=== PATIENT | female | born 1945 | race Caucasian/White ===

== ENCOUNTER → 2019-05-10 13:50 | Outpatient (CLI) | payer MEDICARE, OTHER, SELFPAY | PROVIDERS: PCP Family Medicine; Visit Provider Family Medicine | DX: Z78.0 Asymptomatic menopausal state (principal) | CPT/HCPCS: 77080 ==

== ENCOUNTER → 2019-11-15 10:58 | Outpatient (CLI) | payer MEDICARE, OTHER, SELFPAY ==
--- NOTE | 2019-11-15 | DI.CT.S_ITS ---
PROCEDURE: CT ABDOMEN PELVIS W CON INDICATIONS: Other specified disorders of kidney and ureter TECHNIQUE: After the administration of oral and intravenous contrast, 5 mm thick sections acquired from the diaphragms to the symphysis. 5 mm thick coronal and sagittal reformats were performed. For radiation dose reduction, the following was used: automated exposure control, adjustment of mA and/or kV according to patient size. COMPARISON: None. FINDINGS: Image quality: Excellent. ABDOMEN: Lung bases: Lung bases are clear. Heart size is normal. Solid organs: Hepatic steatosis. Gallbladder negative. Biliary system is non-dilated. Pancreas enhances normally. Spleen is normal in size and enhancement. No adrenal nodules. Kidneys are normal in size and enhancement, without hydronephrosis. There is malrotated appearance of the right kidney. Large simple appearing right renal cyst measuring 7.2 x 5.9 cm. Additional simple appearing smaller left renal cyst measuring 4.5 cm in diameter. Peritoneum and bowel: Stomach, small bowel, and colon loops are normal in caliber and wall thickness. No free fluid or air. Normal appendix. Surgical staple line present at the rectosigmoid junction. Nodes and vessels: No retroperitoneal or mesenteric adenopathy. Aorta and inferior vena cava are normal in caliber. Miscellaneous: No ventral hernias. PELVIS: Genitourinary: Bladder wall thickness is normal. Miscellaneous: No inguinal hernias or adenopathy. Bones: No suspicious bony lesions. No vertebral body compression fractures. IMPRESSION: No discrete mass identified. 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 Elsewhere, no acute process Hepatic steatosis Dictated by: Eleazar Osuna M.D. on 11/15/2019 at 16:33 Approved by: Eleazar Osuna M.D. on 11/15/2019 at 16:43
== END ==
PROVIDERS: PCP Family Medicine; Visit Provider Family Medicine
DX: N28.89 Other specified disorders of kidney and ureter (principal); K76.0 Fatty (change of) liver, not elsewhere classified; N28.1 Cyst of kidney, acquired; Q63.2 Ectopic kidney
CPT/HCPCS: 74177; Q9967

== ENCOUNTER → 2020-08-06 08:55 | Outpatient (CLI) | payer MEDICARE, OTHER, SELFPAY ==
--- NOTE | 2020-08-06 09:25 | DI.CT.S_ITS ---
PROCEDURE: CT CHEST WO CON INDICATIONS: Solitary pulmonary nodule, history of breast cancer TECHNIQUE: Noncontrast 5 mm thick sections acquired from the pulmonary apices to the posterior costophrenic angles. 1 mm lung window, 5 mm thick coronal and sagittal and 7 mm axial MIP reformats were then acquired. For radiation dose reduction, the following was used: automated exposure control, adjustment of mA and/or kV according to patient size. COMPARISON: None. FINDINGS: Image quality: Excellent. Lungs and pleura: There are numerous nodules in a peripheral distribution as part of a subtle reticulonodular pattern peripherally in both lungs. Nodules are roughly 2 mm, ground-glass composition, and somewhat patchy. There are occasional, more discrete ground-glass nodules, the largest which is fat posterolaterally right lower lobe (3/231), measures 5 mm. At the lung apices, there is mild biapical pleural based nodularity, and subtle centrilobular emphysematous change. No consolidations or pleural effusions. Central and peripheral airways are patent and normal in caliber. Mediastinum: Heart size is normal. No pericardial effusion. No mediastinal adenopathy by size criteria. Thoracic aorta and central pulmonary arteries are normal in size. Esophagus is normal in caliber. No hiatal hernia. Bones and chest wall: There are surgical clips in left axilla and left breast. An ovoid left axillary seroma measures 6.6 x 4.1 x 4.9 cm. Left breast lumpectomy cavity measures about 3.2 x 3.2 x 1.1 cm. There are degenerative anterior endplate sclerotic changes in the mid thoracic spine. No suspicious bony lesions. No vertebral body compression fractures. No axillary or supraclavicular adenopathy by size criteria. Thyroid gland is unremarkable . Abdomen: Visualized upper abdominal solid organs and bowel loops appear normal in the absence of contrast. Partially imaged left upper pole renal cyst. IMPRESSION: 1. Numerous, mainly pleural-based tiny nodules are part of a peripheral reticulonodular lung pattern. This may be post infectious, inflammatory, less likely aspiration given atypical distribution, or potentially smoking-related (if this fits the clinical picture). Interstitial lung disease or metastatic disease cannot be excluded. 3-6 month follow-up chest CT is recommended to assess for change. 2. Postsurgical changes in the left breast and left axilla. 3. No evidence of adenopathy in the chest. Dictated by: Jessica Rubio M.D. on 08/06/2020 at 10:52 Approved by: Jessica Rubio M.D. on 08/06/2020 at 11:10
== END ==
PROVIDERS: PCP Family Medicine; Referring Provider Family Medicine; Visit Provider Family Medicine
DX: C50.412 Malignant neoplasm of upper-outer quadrant of left female breast (principal); R91.1 Solitary pulmonary nodule
CPT/HCPCS: 71250

== ENCOUNTER 2020-08-06 09:18 | Emergency (ER) | payer MEDICARE, OTHER, SELFPAY ==
[2020-08-06] VITALS (8 sets, daily range): BP systolic 113–137; BP diastolic 66–85; PULSE 72–88; RESP 16–18; TEMP 36.8; O2SAT 96–99
--- NOTE | 2020-08-06 09:52 | ED_ITS ---
HPI - Extremity Problem General Chief complaint: Extremity Problem,Nontraumatic Stated complaint: underarm pain post op Time Seen by Provider: 08/06/20 09:34 Source: patient Mode of arrival: Ambulatory Limitations: no limitations History of Present Illness HPI Narrative: Patient is a 75-year-old female. History of breast cancer. Underwent a lymph node biopsy left axillary area approximately 1 month ago. Has subsequently had radiation. Had a outpatient CT scan of the chest ordered by her primary doctor for evaluation of other ?inflammation? areas that were found throughout her workup. Here in the emergency department because for the past 2 days has had increasing pain and swelling to the left breast/axillary region. Has had similar issues like this in the past. Has had a seroma drained 3 different times by her surgeon over the past month. Has been on Tylenol and ibuprofen for the discomfort. Also have some ?nerve pain? no fevers. Related Data Home Medications Medication Instructions Recorded Confirmed [ESTROGEN PATCH] #0 04/02/17 escitalopram oxalate [Lexapro] #0 04/02/17 triamterene-hydrochlorothiazid #0 04/02/17 Previous Rx's Medication Instructions Recorded ciprofloxacin HCl [Cipro] 500 mg PO BID #12 tab 04/02/17 hydrocodone-acetaminophen [[place]] 1 tab PO Q4-6H PRN #10 tab 08/06/20 Allergies Allergy/AdvReac Type Severity Reaction Status Date / Time No Known Drug Allergies Allergy Verified 08/06/20 11:54 Review of Systems Constitutional Constitutional: Denies fever(s) Cardiovascular Cardiovascular: Denies chest pain and Denies dyspnea Respiratory Respiratory: Denies dyspnea Gastrointestinal Gastrointestinal: Denies abdominal pain, Denies nausea and Denies vomiting Musculoskeletal Musculoskeletal: Reports tingling (Left arm) Integumentary/Breasts Comments: Swelling and pain left breast/axillary region Neurologic Neurologic: Reports tingling (Left arm) Hematologic/Lymphatic Hematologic/Lymphatic: Denies easy bleeding and Denies easy bruising Allergic/Immunologic Allergic/Immunologic: Denies urticaria Patient History Medical History Breast cancer (Acute) Campylobacter gastroenteritis (Inactive) Hypokalemia (Inactive) Social History Smoking Status: Former smoker Smoking Status: Former smoker alcohol intake frequency: 0-2 drinks per day Substance Use Type: does not use Exam Initial Vital Signs Initial Vital Signs: Vital Signs Temperature 98.3 F 08/06/20 09:20 Pulse Rate 88 08/06/20 09:20 Respiratory Rate 18 08/06/20 09:20 Blood Pressure 136/85 08/06/20 09:20 Pulse Oximetry 99 08/06/20 09:20 Const General: cooperative, comfortable and well developed Limitations: mental status not altered HENMT Head: normal to inspection and normocephalic Chest Other: Minimal redness however does have swelling to the left lateral breast into the axilla. Surgical scars in this area consistent with her stated history and appear well. Resp Effort & Inspection: normal respiratory effort Cardio Rate: regular rate Skin Lesions: no lesions Rashes: no rashes Neuro Sensory Exam: no sensory deficits noted Extrem General: normal to inspection and capillary refill normal Other: No swelling left upper extremity Psych Appearance: grossly normal and well kempt Course Orders Ordered: Discontinued Medications Hydrocodone Bitart/Acetaminophen ([place] 5/325) 1 tab PO NOW ONE Stop: 08/06/20 11:52 Last Admin: 08/06/20 12:05 Dose: 1 tab Documented by: BTONER Vital Signs Vital signs: Vital Signs - 8 hr 08/06/20 09:20 08/06/20 09:27 08/06/20 09:30 Temperature 98.3 F Pulse Rate 88 85 79 Respiratory Rate 18 Blood Pressure 136/85 136/85 137/79 Pulse Oximetry 99 98 98 08/06/20 10:00 08/06/20 10:30 08/06/20 11:00 Temperature Pulse Rate 84 72 75 Respiratory Rate Blood Pressure 132/70 113/66 119/67 Pulse Oximetry 96 97 98 08/06/20 11:30 Temperature Pulse Rate 74 Respiratory Rate Blood Pressure 130/68 Pulse Oximetry 99 MDM - Extremity (Nontraumatic) Imaging Data CT scan - chest: Radiologist's Impression: [address] [address] [address] Scan Report Signed Patient: Rhianna Lozada EMR#: [id number] : 7Acct:[id number] Age/Sex: 75 / FDate of Service: 08/06/20 Loc: CT Accession Number: [id number] Procedure: CT chest wo con Ordering Provider: George Basilio MD PROCEDURE: CT CHEST WO CON INDICATIONS: Solitary pulmonary nodule, history of breast cancer TECHNIQUE: Noncontrast 5 mm thick sections acquired from the pulmonary apices to the posterior costophrenic angles. 1 mm lung window, 5 mm thick coronal and sagittal and 7 mm axial MIP reformats were then acquired. For radiation dose reduction, the following was used: automated exposure control, adjustment of mA and/or kV according to patient size. COMPARISON: None. FINDINGS: Image quality: Excellent. Lungs and pleura: There are numerous nodules in a peripheral distribution as part of a subtle reticulonodular pattern peripherally in both lungs. Nodules are roughly 2 mm, ground-glass composition, and somewhat patchy. There are occasional, more discrete ground-glass nodules, the largest which is fat posterolaterally right lower lobe (3/231), measures 5 mm. At the lung apices, there is mild biapical pleural based nodularity, and subtle centrilobular emphysematous change. No consolidations or pleural effusions. Central and peripheral airways are patent and normal in caliber. Mediastinum: Heart size is normal. No pericardial effusion. No mediastinal adenopathy by size criteria. Thoracic aorta and central pulmonary arteries are normal in size. Esophagus is normal in caliber. No hiatal hernia. Bones and chest wall: There are surgical clips in left axilla and left breast. An ovoid left axillary seroma measures 6.6 x 4.1 x 4.9 cm. Left breast lumpectomy cavity measures about 3.2 x 3.2 x 1.1 cm. There are degenerative anterior endplate sclerotic changes in the mid thoracic spine. No suspicious bony lesions. No vertebral body compression fractures. No axillary or supraclavicular adenopathy by size criteria. Thyroid gland is unremarkable . Abdomen: Visualized upper abdominal solid organs and bowel loops appear normal in the absence of contrast. Partially imaged left upper pole renal cyst. IMPRESSION: 1. Numerous, mainly pleural-based tiny nodules are part of a peripheral reticulonodular lung pattern. This may be post infectious, inflammatory, less likely aspiration given atypical distribution, or potentially smoking-related (if this fits the clinical picture). Interstitial lung disease or metastatic disease cannot be excluded. 3-6 month follow-up chest CT is recommended to assess for change. 2. Postsurgical changes in the left breast and left axilla. 3. No evidence of adenopathy in the chest. Dictated by: Jessica Rubio M.D. on 08/06/2020 at 10:52 Approved by: Jessica Rubio M.D. on 08/06/2020 at 11:10 [facility] Narrative Medical decision making narrative: The CT scan included in the note today is for reference purposes only. It was ordered by an outside provider and done as an outpatient. I did discuss the results with the patient inform her that she needs to talk with her primary doctor and also her general surgeon regarding the results of this. She does have a left-sided seroma. There is no signs of infection. I did discuss the case with the physician's assistant professor of anthropology on her surgical team who stated that we could potentially drain that seroma here in the emergency department versus having the patient follow-up later this week. I do not feel comfortable draining the seroma given the location. I did discuss the case with Radiology. There is no ultrasound guided drainage spots available today in our department. I have the patient follow-up with the surgery department at [facility] later this week. She was given return precautions. She expressed understanding and agreement. Discharge Plan Departure Patient Disposition: Home Clinical Impression: Seroma after procedure Activity Restrictions/Additional Instructions: Recommend you contact the General surgery Department at the [facility] for follow-up later this week. Continue all of your medications as directed. Return to the emergency department for any new or worsening symptoms Prescriptions: New hydrocodone-acetaminophen [[place]] 5-325 mg tablet 1 tab PO Q4-6H PRN (Reason: pain) Qty: 10 RF: 0 No Action triamterene-hydrochlorothiazid 50 MG/25 MG capsule Qty: 0 RF: 0 escitalopram oxalate [Lexapro] 10 MG tablet Qty: 0 RF: 0 [ESTROGEN PATCH] Qty: 0 RF: 0 ciprofloxacin HCl [Cipro] 500 MG tablet 500 mg PO BID Qty: 12 RF: 0 Referrals: George Basilio MD [Primary Care Provider] -
--- NOTE | 2020-08-06 11:46 | PC.NURSE ---
pt has post op wound area, lt axilla down left side of breast. swelling around 10cm in circumference.
[2020-08-06] MEDS: HYDROCODONE/ACET 5/325 TABLET 1 TAB PO (12:05)
== END 2020-08-06 13:37 | disposition home or self-care (01) ==
PROVIDERS: Emergency Provider Emergency Medicine; PCP Family Medicine
DX: L76.34 Postprocedural seroma of skin and subcutaneous tissue following other procedure (principal); C50.412 Malignant neoplasm of upper-outer quadrant of left female breast; R91.1 Solitary pulmonary nodule
CPT/HCPCS: 71250; 99283

== ENCOUNTER → 2020-10-10 10:46 | Outpatient (CLI) | payer MEDICARE, OTHER, SELFPAY ==
--- NOTE | 2020-10-10 | DI.US.S_ITS ---
PROCEDURE: US RENAL COMPLETE INDICATIONS: RIGHT FLANK PAIN TECHNIQUE: Real-time scanning was performed of the kidneys and bladder, with image documentation. COMPARISON: None. FINDINGS: Kidneys: Kidneys are normal in size. Right kidney measures 10.7 cm long; left kidney measures 12.2 cm long. Right renal cortical thickness is 1.9 cm; left renal cortical thickness is 1.6 cm. Renal cortical echotexture is normal. No hydronephrosis or nephrolithiasis. No suspicious solid mass lesions. There are 2 left renal cysts, 1 of which measures 7.2 cm in diameter and 1 of which measures 2.5 cm in diameter. Bladder: Pre-void bladder volume is 557 mL. Post-void residual is 0 mL. Pre-void images demonstrate no intraluminal masses or stones. On pre-void images, bilateral ureteral jets are noted with color Doppler interrogation. (Of note, ureteral jets may not be detectable in up to 25% of cases due to insufficient differences in specific gravity between ureteral and bladder urine). Miscellaneous: No free pelvic fluid. IMPRESSION: 1. No hydronephrosis or nephrolithiasis. 2. Right renal cysts. It is unclear whether the large (7 cm) renal cyst may be the etiology of the patient's flank pain. If further characterization is warranted, consultation for percutaneous ultrasound or CT-guided drainage of this cyst could be considered to evaluate for pain relief. Consider interventional radiology consultation at [facility] if clinically indicated. 3. No postvoid residual. Dictated by: Nano Slade M.D. on 10/10/2020 at 13:11 Approved by: Nano Slade M.D. on 10/10/2020 at 13:14
--- NOTE | 2020-10-10 | DI.US.S_ITS ---
ULTRASOUND OF LEFT BREAST: 10/10/2020 CLINICAL: Left axillary pain post sentinel node biopsy 07-02-2020. Comparison is made to exams dated: 08/06/20 CT scan chest, 05/14/2020 mammogram, 05/14/2020 ultrasound biopsy, 05/07/2020 ultrasound, 05/07/2020 mammogram, 04/24/2020 mammogram - [facility], and 11/29/2018 mammogram - [facility]. Color flow, real-time, and continuous wave Doppler ultrasound of the left breast were performed. There is a 2.1 cm x 2.9 cm x 1.1 cm irregular fluid collection in the left axillary tail. This irregular fluid collection is hypoechoic and there is a tract to the skin surface. There is an associated surgical clip. Color flow imaging demonstrates that there is no vascularity present. This abnormality is decreased in size compared to a recent chest CT scan, and correlates to the reported pain. IMPRESSION: BENIGN There is no sonographic evidence of malignancy. The 2.1 cm x 2.9 cm x 1.1 cm irregular fluid collection most likely is a resolving hematoma/ seroma and appears benign. Clinical follow up suggested for symptoms. Return to annual mammogram screening schedule is recommended. Findings and recommendations were conveyed to the patient at time of exam. This exam was interpreted at Station ID: [id number]. Electronically Signed By: Jessica peter/:10/10/2020 12:22:34 letter sent: Normal Exam Ultrasound BI-RADS: 2 Benign
== END ==
PROVIDERS: PCP Family Medicine; Referring Provider Family Medicine; Visit Provider Family Medicine
DX: C50.412 Malignant neoplasm of upper-outer quadrant of left female breast (principal); N64.4 Mastodynia; R10.9 Unspecified abdominal pain; N28.1 Cyst of kidney, acquired; Z87.448 Personal history of other diseases of urinary system
CPT/HCPCS: 76770; 76882

== ENCOUNTER → 2021-11-06 08:17 | Outpatient (CLI) | payer MEDICARE, OTHER, SELFPAY ==
[2021-11-06 18:55] LABS: Add Manual Diff / Slide Review NO; Basophils Absolute Auto 0 /uL (0-100); Basophils Percent Auto 0.6 % (0-2); Eosinophils Absolute Auto 100 /uL (0-450); Hematocrit 36.1 % (36-46); Hemoglobin 12.3 g/dL (12.0-16.0); Lymphocytes Absolute Auto 900 /uL (1100-4500); Lymphocytes Percent Auto 30.3 % (25-40); Mean Corpuscular Hemoglobin 30.7 PG (26-34); Mean Corpuscular Volume 90.3 fL (80-100); Monocytes Absolute Auto 200 /uL (0-900); Monocytes Percent Auto 7.9 % (3-14); Neutrophils Absolute Auto 1800 /uL (1500-7000); Neutrophils Percent Auto 57.2 % (50-75); Platelet Count 213 X10^3/uL (150-400); Red Cell Distribution Width 13.6 % (11.6-14.8); White Blood Cell Count 3.1 X10^3/uL (4.5-11.0)
[2021-11-06 19:02] LABS: Alanine Aminotransferase 14 IU/L (<35); Albumin 4.2 g/dL (3.5-5.0); Albumin Globulin Ratio 1.6 (1.0-2.8); Alkaline Phosphatase 69 U/L (38-126); Aspartate Aminotransferase 29 IU/L (14-36); BUN Creatinine Ratio 19.7 (6-22); Bilirubin Total 0.5 mg/dL (0.2-1.3); Blood Urea Nitrogen 14 mg/dL (7-17); Calcium 9.7 mg/dL (8.4-10.2); Carbon Dioxide 30 mmol/L (22-32); Chloride 107 mmol/L (98-107); Cholesterol 230 mg/dL (140-199); Estimated Glomerular Filt Rate > 60.0 mL/min (>60); Globulin 2.7 g/dL (1.7-4.1); Glucose 102 mg/dL (80-110); HDL Cholesterol 48 mg/dL (40-60); HEMOLYSIS 32 (0-50); LDL Cholesterol Calculated 131 mg/dL (<100); Potassium 4.6 mmol/L (3.4-5.1); Sodium 140 mmol/L (137-145); Total Protein 6.9 g/dL (6.3-8.2); Triglycerides 256 mg/dL (35-150)
== END ==
PROVIDERS: PCP Family Medicine; Referring Provider Family Medicine; Visit Provider Family Medicine
DX: I10 Essential (primary) hypertension (principal)
CPT/HCPCS: 80053; 80061; 84443; 85025

== ENCOUNTER → 2022-04-30 09:26 | Outpatient (CLI) | payer MEDICARE, OTHER, SELFPAY ==
[2022-04-30 18:35] LABS: Add Manual Diff / Slide Review NO; Basophils Absolute Auto 0 /uL (0-100); Basophils Percent Auto 0.5 % (0-2); Eosinophils Absolute Auto 100 /uL (0-450); Eosinophils Percent Auto 3.8 % (2-4); Hematocrit 39.2 % (36-46); Hemoglobin 13.3 g/dL (12.0-16.0); Lymphocytes Absolute Auto 1400 /uL (1100-4500); Lymphocytes Percent Auto 41.9 % (25-40); Mean Corpuscular HGB Conc 33.9 % (30-36); Mean Corpuscular Hemoglobin 29.9 PG (26-34); Mean Corpuscular Volume 88.3 fL (80-100); Monocytes Absolute Auto 300 /uL (0-900); Monocytes Percent Auto 9.8 % (3-14); Neutrophils Absolute Auto 1500 /uL (1500-7000); Platelet Count 217 X10^3/uL (150-400); Red Blood Cell Count 4.44 X10^6/uL (4.0-5.2); Red Cell Distribution Width 12.7 % (11.6-14.8); White Blood Cell Count 3.4 X10^3/uL (4.5-11.0)
[2022-04-30 18:47] LABS: Alanine Aminotransferase 12 IU/L (<35); Albumin 4.3 g/dL (3.5-5.0); Albumin Globulin Ratio 1.7 (1.0-2.8); Alkaline Phosphatase 82 U/L (38-126); Aspartate Aminotransferase 28 IU/L (14-36); BUN Creatinine Ratio 19.2 (6-22); Bilirubin Total 0.4 mg/dL (0.2-1.3); Blood Urea Nitrogen 14 mg/dL (7-17); Calcium 9.1 mg/dL (8.4-10.2); Carbon Dioxide 30 mmol/L (22-32); Chloride 105 mmol/L (98-107); Cholesterol 218 mg/dL (140-199); Estimated Glomerular Filt Rate > 60 mL/min (>60); Globulin 2.5 g/dL (1.7-4.1); Glucose 101 mg/dL (80-110); HDL Cholesterol 48 mg/dL (40-60); HEMOLYSIS < 15 (0-50); LDL Cholesterol Calculated 128 mg/dL (<100); Potassium 4.4 mmol/L (3.4-5.1); Sodium 141 mmol/L (137-145); Total Protein 6.8 g/dL (6.3-8.2); Triglycerides 210 mg/dL (35-150)
[2022-05-01 05:03] LABS: TSH w/ Reflex to FT4 1.69 uIU/mL (0.47-4.68)
== END ==
PROVIDERS: PCP Family Medicine; Visit Provider Family Medicine
DX: F39 Unspecified mood [affective] disorder (principal); E78.5 Hyperlipidemia, unspecified; F41.1 Generalized anxiety disorder; G62.9 Polyneuropathy, unspecified; I10 Essential (primary) hypertension
CPT/HCPCS: 80053; 80061; 84443; 85025

== ENCOUNTER → 2022-09-25 12:23 | Outpatient (CLI) | payer MEDICARE, OTHER, SELFPAY ==
[2022-09-25 18:40] LABS: Alanine Aminotransferase 18 IU/L (<35); Albumin 4.3 g/dL (3.5-5.0); Albumin Globulin Ratio 1.6 (1.0-2.8); Alkaline Phosphatase 83 U/L (38-126); Aspartate Aminotransferase 30 IU/L (14-36); BUN Creatinine Ratio 27.3 (6-22); Bilirubin Total 0.5 mg/dL (0.2-1.3); Blood Urea Nitrogen 18 mg/dL (7-17); Calcium 9.2 mg/dL (8.4-10.2); Carbon Dioxide 27 mmol/L (22-32); Chloride 103 mmol/L (98-107); Estimated Glomerular Filt Rate > 60 mL/min (>60); Globulin 2.7 g/dL (1.7-4.1); Glucose 86 mg/dL (80-110); HEMOLYSIS < 15 (0-50); Potassium 4.8 mmol/L (3.4-5.1); Sodium 140 mmol/L (137-145)
[2022-09-25 19:06] LABS: Add Manual Diff / Slide Review NO
[2022-09-25 20:31] LABS: Appearance Urine UA CLEAR; Bilirubin Urine UA NEGATIVE (NEGATIVE); Color Urine UA YELLOW; Glucose Urine UA NEGATIVE (Negative); Ketones Urine UA NEGATIVE (NEGATIVE); Leukocyte Esterase Urine UA TRACE (NEGATIVE); Nitrite Urine UA NEGATIVE (Negative); Occult Blood Urine UA NEGATIVE (Negative); Protein Urine UA NEGATIVE (Negative); Specific Gravity Urine UA 1.025 (1.000-1.035); Urobilinogen Urine UA 0.2 E.U./dL (0.2)
[2022-09-25 20:32] LABS: Bacteria Urine Occasional (0-1); RBC Urine 0-1/HPF (0-5/HPF); Squamous Epithelial Cell Urine 0-1 /HPF (0-5/HPF); WBC Urine 0-1/HPF (0-5/HPF)
[2022-09-25 20:33] LABS: Culture Indicated Urine Cult Not Indicated
== END ==
PROVIDERS: PCP Family Medicine; Visit Provider Physician Assistant Medical
DX: F39 Unspecified mood [affective] disorder (principal); R10.9 Unspecified abdominal pain; R68.83 Chills (without fever)
CPT/HCPCS: 80053; 81001; 85007; 85025

== ENCOUNTER → 2022-11-11 09:52 | Outpatient (CLI) | payer MEDICARE, OTHER, SELFPAY ==
[2022-11-11 19:22] LABS: Add Manual Diff / Slide Review NO; Basophils Absolute Auto 0 /uL (0-100); Basophils Percent Auto 0.7 % (0-2); Eosinophils Absolute Auto 100 /uL (0-450); Eosinophils Percent Auto 1.5 % (2-4); Hematocrit 40.9 % (36-46); Hemoglobin 13.9 g/dL (12.0-16.0); Lymphocytes Absolute Auto 1300 /uL (1100-4500); Lymphocytes Percent Auto 37.6 % (25-40); Mean Corpuscular HGB Conc 33.9 % (30-36); Mean Corpuscular Hemoglobin 29.4 PG (26-34); Mean Corpuscular Volume 86.6 fL (80-100); Monocytes Absolute Auto 300 /uL (0-900); Monocytes Percent Auto 8.7 % (3-14); Neutrophils Absolute Auto 1800 /uL (1500-7000); Neutrophils Percent Auto 51.5 % (50-75); Platelet Count 205 X10^3/uL (150-400); Red Blood Cell Count 4.73 X10^6/uL (4.0-5.2); Red Cell Distribution Width 13.9 % (11.6-14.8); White Blood Cell Count 3.6 X10^3/uL (4.5-11.0)
[2022-11-11 19:24] LABS: Alanine Aminotransferase 19 IU/L (<35); Albumin 4.1 g/dL (3.5-5.0); Albumin Globulin Ratio 1.3 (1.0-2.8); Alkaline Phosphatase 76 U/L (38-126); Aspartate Aminotransferase 29 IU/L (14-36); BUN Creatinine Ratio 21.4 (6-22); Bilirubin Total 0.7 mg/dL (0.2-1.3); Blood Urea Nitrogen 15 mg/dL (7-17); Calcium 9.2 mg/dL (8.4-10.2); Carbon Dioxide 27 mmol/L (22-32); Chloride 102 mmol/L (98-107); Cholesterol 247 mg/dL (140-199); Estimated Glomerular Filt Rate > 60 mL/min (>60); Globulin 3.1 g/dL (1.7-4.1); Glucose 91 mg/dL (80-110); HDL Cholesterol 54 mg/dL (40-60); HEMOLYSIS 21 (0-50); LDL Cholesterol Calculated 163 mg/dL (<100); Potassium 4.2 mmol/L (3.4-5.1); Sodium 139 mmol/L (137-145); Total Protein 7.2 g/dL (6.3-8.2); Triglycerides 149 mg/dL (35-150)
[2022-11-11 19:28] LABS: HEMOLYSIS < 15 (0-50); Iron 107 ug/dL (37-170)
[2022-11-11 19:35] LABS: Transferrin 259 mg/dL (206-381)
[2022-11-11 19:55] LABS: TSH w/ Reflex to FT4 2.35 uIU/mL (0.47-4.68)
[2022-11-11 20:13] LABS: Vitamin B12 779 pg/mL (239-931)
[2022-11-12 14:58] LABS: Percent Iron Saturation 30 % (15-50); Total Iron Binding Capacity 355 ug/dL (265-497)
== END ==
PROVIDERS: PCP Family Medicine; Visit Provider Family Medicine
DX: D64.9 Anemia, unspecified (principal); E78.5 Hyperlipidemia, unspecified; I10 Essential (primary) hypertension
CPT/HCPCS: 80053; 80061; 82607; 83540; 83550; 84443; 85025

== ENCOUNTER → 2023-09-08 10:26 | Outpatient (CLI) | payer MEDICARE, OTHER, SELFPAY ==
[2023-09-08 19:30] LABS: Alanine Aminotransferase 18 IU/L (<35); Albumin Globulin Ratio 1.5 (1.0-2.8); Alkaline Phosphatase 73 U/L (38-126); Aspartate Aminotransferase 32 IU/L (14-36); BUN Creatinine Ratio 21.6 (6-22); Bilirubin Total 0.8 mg/dL (0.2-1.3); Blood Urea Nitrogen 16 mg/dL (7-17); Calcium 9.4 mg/dL (8.4-10.2); Carbon Dioxide 29 mmol/L (22-32); Chloride 104 mmol/L (98-107); Estimated Glomerular Filt Rate > 60 mL/min (>60); Globulin 2.7 g/dL (1.7-4.1); Glucose 98 mg/dL (80-110); HEMOLYSIS < 15 (0-50); Potassium 4.2 mmol/L (3.4-5.1); Sodium 139 mmol/L (137-145); Total Protein 6.7 g/dL (6.3-8.2)
[2023-09-08 19:38] LABS: Add Manual Diff / Slide Review NO; Basophils Absolute Auto 0 /uL (0-100); Basophils Percent Auto 1.1 % (0-2); Eosinophils Absolute Auto 100 /uL (0-450); Eosinophils Percent Auto 3.1 % (2-4); Hematocrit 39.2 % (36-46); Hemoglobin 13.2 g/dL (12.0-16.0); Lymphocytes Absolute Auto 1200 /uL (1100-4500); Lymphocytes Percent Auto 36.8 % (25-40); Mean Corpuscular HGB Conc 33.6 % (30-36); Mean Corpuscular Hemoglobin 29.4 PG (26-34); Mean Corpuscular Volume 87.4 fL (80-100); Monocytes Absolute Auto 300 /uL (0-900); Monocytes Percent Auto 8.1 % (3-14); Neutrophils Absolute Auto 1600 /uL (1500-7000); Neutrophils Percent Auto 50.9 % (50-75); Platelet Count 187 X10^3/uL (150-400); Red Blood Cell Count 4.48 X10^6/uL (4.0-5.2); Red Cell Distribution Width 13.6 % (11.6-14.8); White Blood Cell Count 3.2 X10^3/uL (4.5-11.0)
[2023-09-08 19:41] LABS: LDL Cholesterol Direct 115 mg/dL (<100)
[2023-09-08 19:52] LABS: Thyroid Stimulating Hormone 2.13 uIU/mL (0.47-4.68)
== END ==
PROVIDERS: PCP Family Medicine; Visit Provider Family Medicine
DX: I10 Essential (primary) hypertension (principal); E78.2 Mixed hyperlipidemia; K57.92 Diverticulitis of intestine, part unspecified, without perforation or abscess without bleeding; Z51.81 Encounter for therapeutic drug level monitoring; Z79.1 Long term (current) use of non-steroidal anti-inflammatories (NSAID); M79.622 Pain in left upper arm
CPT/HCPCS: 80053; 83721; 84443; 85025

== ENCOUNTER → 2023-09-15 11:05 | Outpatient (CLI) | payer MEDICARE, OTHER, SELFPAY ==
--- NOTE | 2023-09-15 11:12 | DI.CT.S_ITS ---
PROCEDURE: CT ABDOMEN PELVIS W CON INDICATIONS: LUQ pain, colectomy for diverticulitis TECHNIQUE: After the administration of IV contrast, axial sections were acquired from the lung bases to the pubic symphysis. Coronal and sagittal reformats were performed. For radiation dose reduction, the following was used: automated exposure control, adjustment of mA and/or kV according to patient size. COMPARISON: [facility], CT, CT ABDOMEN PELVIS W CON, 11/15/2019, 12:10. FINDINGS: Image quality: Excellent. Lung bases: Unremarkable. Heart: No significant findings. ABDOMEN: Liver: No solid mass. Gallbladder: No radiopaque gallstones or wall thickening. Biliary ducts: No biliary dilation. Pancreas: No ductal dilation. Pancreatic divisum. Spleen: Size is within normal limits. Adrenal Glands: No adrenal nodules. Kidneys and Ureters: No hydronephrosis. No solid mass. No complex renal cystic lesion which requires follow up. Stomach and Bowel: Normal colonic caliber, without significant wall thickening. Partial colectomy, surgical anastomosis in the deep pelvis. Colonic diverticulosis without evidence of diverticulitis. Peritoneum: No abnormal intraperitoneal fluid. No free air. Ventral Wall: No hernia. Abdominal Nodes: No retroperitoneal or mesenteric adenopathy by size criteria. Vessels: Aorta and inferior vena cava are normal in size. PELVIS: Pelvic Organs: Unremarkable. Bladder: Unremarkable. Pelvic Nodes: No enlarged lymph nodes. Miscellaneous: No inguinal hernias are seen. Bones: Grade 1 anterolisthesis of L4 on L5 secondary to facet arthrosis. IMPRESSION: No findings to explain the patient's left upper quadrant pain. Colonic diverticulosis without evidence of diverticulitis. Partial colectomy, with surgical anastomosis in the deep pelvis. Pancreatic divisum. Dictated by: Tyrese Gaytan M.D. on 09/15/2023 at 12:01 Approved by: Tyrese Gaytan M.D. on 09/15/2023 at 12:03
== END ==
PROVIDERS: PCP Family Medicine; Referring Provider Family Medicine; Visit Provider Family Medicine
DX: Z90.49 Acquired absence of other specified parts of digestive tract (principal); R10.12 Left upper quadrant pain; K57.30 Diverticulosis of large intestine without perforation or abscess without bleeding
CPT/HCPCS: 74177; Q9967

== ENCOUNTER → 2023-10-27 14:11 | Outpatient (CLI) | payer MEDICARE, OTHER, SELFPAY ==
[2023-10-27 20:35] LABS: C-Reactive Protein Quant < 0.5 mg/dL (<1.0); Rheumatoid Factor 28.3 IU/mL (<12.0)
[2023-10-27 20:51] LABS: Erythrocyte Sedimentation Rate 7 MM/HR (0-20)
[2023-10-30 14:16] LABS: CCP Antibodies IgG/IgA 10 units (0-19)
[2023-11-01 19:36] LABS: ANA Screen, IFA Positive (.)
== END ==
PROVIDERS: PCP Family Medicine; Visit Provider Family Medicine
DX: M45.9 Ankylosing spondylitis of unspecified sites in spine (principal); M19.041 Primary osteoarthritis, right hand; M19.042 Primary osteoarthritis, left hand; G62.9 Polyneuropathy, unspecified
CPT/HCPCS: 85651; 86038; 86140; 86200; 86430

== ENCOUNTER → 2023-11-12 12:56 | Outpatient (CLI) | payer MEDICARE, OTHER, SELFPAY ==
[2023-11-12 21:12] LABS: Erythrocyte Sedimentation Rate 32 MM/HR (0-20)
[2023-11-12 21:13] LABS: C-Reactive Protein Quant 13.9 mg/dL (<1.0)
[2023-11-17 19:13] LABS: SS A Ro Sjogrens Antibody 0.2 AI (0.0-0.9); SS B La Sjogrens Antibody < 0.2 AI (0.0-0.9)
== END ==
PROVIDERS: PCP Family Medicine; Visit Provider Family Medicine
DX: R76.8 Other specified abnormal immunological findings in serum (principal); M79.641 Pain in right hand; M79.642 Pain in left hand; R68.2 Dry mouth, unspecified; H04.123 Dry eye syndrome of bilateral lacrimal glands; R13.10 Dysphagia, unspecified
CPT/HCPCS: 85651; 86140; 86235

== ENCOUNTER 2023-11-13 18:01 | Emergency (ER) | payer MEDICARE, OTHER, SELFPAY ==
[2023-11-13 18:06] VITALS: BP 147/74; PULSE 116; RESP 16; TEMP 38.8; O2SAT 93; BMI 24.7
--- NOTE | 2023-11-13 18:07 | DI.RAD.S_ITS ---
PROCEDURE: XR CHEST 1V INDICATIONS: FEVER/COUGH TECHNIQUE: One view of the chest was acquired. COMPARISON: None. FINDINGS: Surgical changes and devices: None. Lungs and pleura: Mild coarsening of the bases bilaterally. Mediastinum: Mediastinal contours appear normal. Heart size is normal. Bones and chest wall: No suspicious bony lesions. Overlying soft tissues appear unremarkable. IMPRESSION: Mild bibasilar coarsening. This could represent dependent change versus developing pneumonia/atelectasis. Dictated by: Cheyenne Farnsworth M.D. on 11/13/2023 at 18:41 Approved by: Cheyenne Farnsworth M.D. on 11/13/2023 at 18:42
[2023-11-13 18:15] VITALS: TEMP 37.7
[2023-11-13 18:19] VITALS: TEMP 38.8
[2023-11-13 18:28] VITALS: TEMP 38.8
[2023-11-13] MEDS: ACETAMINOPHEN 325 MG TABLET 975 MG PO (18:28)
--- NOTE | 2023-11-13 18:33 | ED_ITS ---
HPI - SOB/Dyspnea General Chief Complaint: Shortness of Breath/Dyspnea Stated Complaint: 102.6 fever/cough Time Seen by Provider: 11/13/23 18:01 Source: patient Mode of arrival: Ambulatory History of Present Illness HPI Narrative: 3 days of productive cough, fever, and shortness of breath. Primary care was concerned patient may have pneumonia and referred her to the ER. Last took Tylenol approximately noon today. Related Data Home Medications Medication Instructions Recorded Confirmed lorazepam 1 mg tablet 1 mg PO .prn PRN 07/24/21 11/13/23 gabapentin 100 mg capsule 200 mg PO .PRN 08/09/21 11/13/23 morphine 15 mg immediate release 15 mg PO BID PRN 02/25/22 11/13/23 tablet Previous Rx's Medication Instructions Recorded zolpidem 5 mg tablet 5 mg PO BEDTIME PRN sleep #90 tabs 08/12/21 escitalopram oxalate 10 mg tablet See Rx Instructions .Route 12/16/22 .COMPLEX #90 tabs acyclovir 200 mg capsule 200 mg PO DAILY #90 caps 03/31/23 estradiol 0.01% (0.1 mg/gram) See Rx Instructions .Route 04/27/23 vaginal cream (Estrace) .COMPLEX #42.5 grams amlodipine 2.5 mg tablet 2.5 mg PO DAILY for blood pressure 08/26/23 #90 tabs celecoxib 100 mg capsule 100 mg PO BID #180 caps 08/27/23 omeprazole magnesium 20 mg 20 mg PO DAILY #90 tabs 09/24/23 tablet,delayed release telmisartan 80 mg tablet 80 mg PO QAM #90 tabs 10/06/23 doxycycline hyclate 100 mg capsule 100 mg PO BID #10 caps 11/13/23 Allergies Allergy/AdvReac Type Severity Reaction Status Date / Time hydromorphone [From Dilaudid] AdvReac Intermediate Dizzy Verified 11/13/23 18:08 pregabalin [From Lyrica] AdvReac Intermediate makes her Verified 11/13/23 18:08 'dingy' Review of Systems Review of Systems Narrative: Otherwise negative Patient History Medical History Anemia HSV-1 (herpes simplex virus 1) infection Carpal tunnel syndrome Generalized anxiety disorder Neuropathy Screening for colon cancer H/O diverticulitis of colon Family history of scleroderma Family history of pheochromocytoma Breast cancer Hypokalemia Campylobacter gastroenteritis Surgical History S/P partial colectomy Family History Father Pheochromocytoma CVA (cerebral vascular accident) Social History Smoking Status: Former smoker Smoking Status: Former smoker alcohol intake frequency: 0-2 drinks per day Substance Use Type: does not use Exam Initial Vital Signs Initial Vital Signs: Vital Signs Temperature 102 F H 11/13/23 18:06 Pulse Rate 116 H 11/13/23 18:06 Respiratory Rate 16 11/13/23 18:06 Blood Pressure 147/74 H 11/13/23 18:06 Pulse Oximetry 93 11/13/23 18:06 Oxygen Delivery Method Room Air 11/13/23 18:06 Const: Awake, alert, no acute distress, nontoxic appearing Cardiac: regular rate, regular rhythm RESP: unlabored, clear bilaterally, no wheezing GI: Atraumatic, soft, nontender MSK: Atraumatic, full range of motion, pulses equal Skin: Warm, Dry, intact, no rashes Neuro: AO x3, CN II-XII grossly intact, moves all extremities Psych: affect normal, mood normal, not suicidal, not homicidal Course Orders Ordered: ED Orders 11/13/23 18:07 Chest [XR chest 1V] Stat 11/13/23 18:15 Respiratory Panel (Film Array) Stat 11/13/23 18:50 CBC Auto Diff [Complete Blood Count AUTO DIFF] Stat CMP [Comprehensive Metabolic Panel] Stat Discontinued Medications Acetaminophen (Acetaminophen 325 Mg Tablet) 975 mg PO NOW ONE Stop: 11/13/23 18:22 Last Admin: 11/13/23 18:28 Dose: 975 mg Documented By: MICHAEL Doxycycline Hyclate (Doxycycline Hyclate 100 Mg Tablet) 100 mg PO NOW ONE Stop: 11/13/23 19:25 Ketorolac Tromethamine (Ketorolac 30 Mg/Ml Vial) 15 mg IV NOW ONE Stop: 11/13/23 19:25 Last Admin: 11/13/23 19:28 Dose: 15 mg Documented By: BB Vital Signs Vital signs: Vital Signs - 8 hr 11/13/23 18:15 11/13/23 18:19 11/13/23 18:28 Temperature 99.9 F H 102 F H 102 F H Pulse Rate Respiratory Rate Blood Pressure Pulse Oximetry Oxygen Delivery Method 11/13/23 19:41 11/13/23 19:42 Temperature 100.0 F H 100.0 F H Pulse Rate 99 H Respiratory Rate 20 Blood Pressure 115/61 Pulse Oximetry 94 Oxygen Delivery Method Room Air MDM - SOB/Dyspnea Differential Diagnosis Differential diagnosis: Likely acute exacerbation of chronic obstructive airways disease, congestive heart failure and community acquired pneumonia Lab Data 11/13/23 18:50 11/13/23 18:50 Labs: Lab Results 11/13/23 11/13/23 Range/Units 18:15 18:50 WBC 7.9 (4.5-11.0) X10^3/uL RBC 3.96 L (4.0-5.2) X10^6/uL Hgb 11.9 L (12.0-16.0) g/dL Hct 35.4 L (36-46) % MCV 89.5 (80-100) fL MCH 30.2 (26-34) PG MCHC 33.7 (30-36) % RDW 13.8 (11.6-14.8) % Plt Count 166 (150-400) X10^3/uL Neut % (Auto) 79.5 H (50-75) % Lymph % (Auto) 9.1 L (25-40) % [place] % (Auto) 10.9 (3-14) % Eos % (Auto) 0.1 L (2-4) % Baso % (Auto) 0.4 (0-2) % Neut # (Auto) 6300 (3459-9941) /uL Lymph # (Auto) 700 L (2126-1371) /uL [place] # (Auto) 900 (0-900) /uL Eos # (Auto) 0 (0-450) /uL Baso # (Auto) 0 (0-100) /uL Sodium 132 L (137-145) mmol/L Potassium 4.9 (3.4-5.1) mmol/L Chloride 102 (98-107) mmol/L Carbon Dioxide 22 (22-32) mmol/L BUN 13 (7-17) mg/dL Creatinine 0.68 (0.52-1.04) mg/dL Estimated GFR > 60 (>60) mL/min BUN/Creatinine Ratio 19.1 (6-22) Glucose 114 H (80-110) mg/dL Calcium 8.9 (8.4-10.2) mg/dL Total Bilirubin 1.2 (0.2-1.3) mg/dL AST 57 H (14-36) IU/L ALT 32 (<35) IU/L Alkaline Phosphatase 117 (38-126) U/L Total Protein 7.6 (6.3-8.2) g/dL Albumin 4.1 (3.5-5.0) g/dL Globulin 3.5 (1.7-4.1) g/dL Albumin/Globulin Ratio 1.2 (1.0-2.8) Chlamy pneumoniae PCR Not detected (Not Detect) Adenovirus (PCR) Not detected (Not Detect) B.parapertussis DNA PCR Not detected (Not Detecte) Coronavirus OC43 (PCR) Not detected (Not Detect) Coronavirus HKU1 (PCR) Not detected (Not Detect) Coronavirus 229E (PCR) Not detected (Not Detect) SARS-CoV-2 (PCR) Not detected (Not Detecte) Coronavirus NL63 (PCR) Not detected (Not Detect) Human Metapneumovir PCR Not detected (Not Detect) Influenza Type A (PCR) Not detected (Not Detect) Influenza Type B (PCR) Not detected (Not Detect) M. pneumoniae (PCR) Not detected (Not Detect) Parainfluenza 1 (PCR) Not detected (Not Detect) Parainfluenza 2 (PCR) Not detected (Not Detect) Parainfluenza 3 (PCR) Not detected (Not Detect) Parainfluenza 4 (PCR) Not detected (Not Detect) RSV (PCR) Not detected (Not Detect) Entero/Rhino (PCR) Not detected (Not Detect) Urine Dip Bedside Urine Glucose Negative Bedside Urine Bilirubin - Negative Bedside Urine Ketone ++ 40 Urine Specific [place] 1.010 Bedside Urine Occult Blood - Negative Bedside Urine pH 6.0 Bedside Urine Protein - Negative Bedside Urine Urobilinogen - Negative Bedside Urine Nitrite - Negative Bedside Urine Leukocytes - Negative Esterase MDM Narrative Medical decision making narrative: Productive cough and fever for several days. Patient is saturating well on room air, lungs are clear to auscultation bilaterally. Laboratory work does show left shift and increased neutrophil percentage. Chest x-ray shows possible early pneumonia in bilateral bases. Since respiratory panel is negative with the above chest x-ray and lab findings we will treat as pneumonia. Patient is otherwise fairly healthy and we will treat with doxycycline for 5 days. Since her pharmacy is currently closed her 1st dose was ordered tonight. ED return precautions discussed at bedside. Patient expressed understanding of the plan and is in agreement at this time. All questions answered at the time of discharge. Discharge Plan Departure Patient Disposition: Home Clinical Impression: Pneumonia Instructions: DI for Pneumonia -- Adult Prescriptions: New doxycycline hyclate 100 mg capsule 100 mg PO BID Qty: 10 0RF No Action escitalopram oxalate 10 mg tablet See Rx Instructions .ROUTE .COMPLEX Qty: 90 3RF Dose Instruction: TAKE 1 TABLET DAILY Rx Instructions: TAKE 1 TABLET DAILY estradiol [Estrace] 0.01 % (0.1 mg/gram) cream See Rx Instructions .ROUTE .COMPLEX Qty: 42.5 2RF Rx Instructions: 0.5g at introitus 2-3 times weekly amlodipine 2.5 mg tablet 2.5 mg PO DAILY Qty: 90 3RF omeprazole magnesium 20 mg tablet,delayed release (DR/EC) 20 mg PO DAILY Qty: 90 1RF Rx Instructions: for GI protection from celebrex telmisartan 80 mg tablet 80 mg PO QAM Qty: 90 1RF celecoxib 100 mg capsule 100 mg PO BID Qty: 180 3RF Rx Instructions: ok to skip doses [facility]. NOT sent to pharmacy on 08/27/23 gabapentin 100 mg capsule 200 mg PO .PRN Rx Instructions: TAKE 1 CAPSULE DAILY NEEDED FOR BREAKTHROUGH PAIN. zolpidem 5 mg tablet 5 mg PO BEDTIME PRN (Reason: sleep) Qty: 90 0RF lorazepam 1 mg tablet 1 mg PO .prn PRN morphine 15 mg tablet 15 mg PO BID PRN acyclovir 200 mg capsule 200 mg PO DAILY Qty: 90 3RF Rx Instructions: Suppressive dose Referrals: Kayla Rose MD [Primary Care Provider] - Stand Alone Forms: Patient Portal/API
--- NOTE | 2023-11-13 18:55 | PC.NURSE ---
pt was traveling home from [place] and was seated next to a passenger who was coughing and sneezing. 2 days after pt arrived home she developed a fever, cough and feels miserable. pt c/o body aches, fever, coughing and sore throat. a&ox4. hx CA and currently being tested for autoimmune disease.
[2023-11-13 19:02] LABS: Add Manual Diff / Slide Review NO; Basophils Absolute Auto 0 /uL (0-100); Basophils Percent Auto 0.4 % (0-2); Eosinophils Absolute Auto 0 /uL (0-450); Eosinophils Percent Auto 0.1 % (2-4); Hematocrit 35.4 % (36-46); Hemoglobin 11.9 g/dL (12.0-16.0); Lymphocytes Absolute Auto 700 /uL (1100-4500); Lymphocytes Percent Auto 9.1 % (25-40); Mean Corpuscular HGB Conc 33.7 % (30-36); Mean Corpuscular Hemoglobin 30.2 PG (26-34); Mean Corpuscular Volume 89.5 fL (80-100); Monocytes Absolute Auto 900 /uL (0-900); Monocytes Percent Auto 10.9 % (3-14); Neutrophils Absolute Auto 6300 /uL (1500-7000); Neutrophils Percent Auto 79.5 % (50-75); Platelet Count 166 X10^3/uL (150-400); Red Blood Cell Count 3.96 X10^6/uL (4.0-5.2); Red Cell Distribution Width 13.8 % (11.6-14.8); White Blood Cell Count 7.9 X10^3/uL (4.5-11.0)
[2023-11-13 19:18] LABS: Adenovirus Not Detected (Not Detect); B. parapertussis Not Detected (Not Detecte); Bordetella pertussis Not Detected (Not Detect); Chlamydophila pneumoniae Not Detected (Not Detect); Coronavirus 229E Not Detected (Not Detect); Coronavirus HKU1 Not Detected (Not Detect); Coronavirus NL 63 Not Detected (Not Detect); Coronavirus OC43 Not Detected (Not Detect); Human Metapneumovirus Not Detected (Not Detect); Human Rhinovirus/Enterovirus Not Detected (Not Detect); Influenza A Not Detected (Not Detect); Influenza B Not Detected (Not Detect); Mycoplasma pneumoniae Not Detected (Not Detect); Parainfluenza Virus 1 Not Detected (Not Detect); Parainfluenza Virus 2 Not Detected (Not Detect); Parainfluenza Virus 3 Not Detected (Not Detect); Parainfluenza Virus 4 Not Detected (Not Detect); Respiratory Syncytial Virus Not Detected (Not Detect); SARS- CoV-2 Not Detected (Not Detecte)
[2023-11-13 19:19] LABS: Alanine Aminotransferase 32 IU/L (<35); Albumin 4.1 g/dL (3.5-5.0); Albumin Globulin Ratio 1.2 (1.0-2.8); Alkaline Phosphatase 117 U/L (38-126); Aspartate Aminotransferase 57 IU/L (14-36); BUN Creatinine Ratio 19.1 (6-22); Bilirubin Total 1.2 mg/dL (0.2-1.3); Blood Urea Nitrogen 13 mg/dL (7-17); Calcium 8.9 mg/dL (8.4-10.2); Carbon Dioxide 22 mmol/L (22-32); Chloride 102 mmol/L (98-107); Estimated Glomerular Filt Rate > 60 mL/min (>60); Globulin 3.5 g/dL (1.7-4.1); Glucose 114 mg/dL (80-110); HEMOLYSIS 115 (0-50); Potassium 4.9 mmol/L (3.4-5.1); Sodium 132 mmol/L (137-145); Total Protein 7.6 g/dL (6.3-8.2)
[2023-11-13] MEDS: KETOROLAC 30 MG/ML VIAL 15 MG IV (19:28)
[2023-11-13 19:41] VITALS: BP 115/61; PULSE 99; RESP 20; TEMP 37.8; O2SAT 94
[2023-11-13 19:42] VITALS: TEMP 37.8
== END 2023-11-13 19:45 | disposition home or self-care (01) ==
PROVIDERS: Emergency Provider Emergency Medicine; PCP Family Medicine
DX: J18.9 Pneumonia, unspecified organism (principal); Z20.822 Contact with and (suspected) exposure to COVID-19
CPT/HCPCS: 36415; 71045; 80053; 81003; 85025; 87633; 96374; 99284; J1885

== ENCOUNTER → 2024-03-15 11:09 | Outpatient (CLI) | payer MEDICARE, OTHER, SELFPAY ==
--- NOTE | 2024-03-15 11:11 | DI.RAD.S_ITS ---
PROCEDURE: XR DEXA AXIAL SKELETON INDICATIONS: screen COMPARISON: [facility], ROJAS, XR DEXA AXIAL SKELETON, 05/10/2019, 14:17. FINDINGS: Lumbar Spine: Bone mineral density is 0.937 g/cm2, T score -1.0. Prior DEXA was performed using dissimilar scan type or analysis method. Left Hip: Bone mineral density is 0.854 g/cm2, T score -0.7. Prior DEXA was performed using dissimilar scan type or analysis method. Left Femoral Neck: Bone mineral density 0.830 g/cm2, T score -0.2. Right Hip: Bone mineral density 0.863 g/cm2, T score -0.6. Prior DEXA was performed using dissimilar scan type or analysis method. Right Femoral Neck: Bone mineral density 0.761 g/cm2, T score -0.8. Fracture Risk Calculation (when applicable): FRAX score not reported due to T-scores greater than or equal to -1.0. (T score greater or equal to -1.0 to: NORMAL) (T score from -1.1 to -2.4: OSTEOPENIA) (T score less than or equal to -2.5: OSTEOPOROSIS) IMPRESSION: By WHO criteria, patient has normal bone mineral density. Follow-up guidelines as follows: Osteoporosis: Consider a repeat DEXA and Vertebral Fracture Assessment (VFA) exam in 2 years or sooner if medically necessary, to reassess this patient's status. Osteopenia: Consider a repeat DEXA in 2-3 years to reassess this patient's status, or if there is a new clinical indication. Normal: Consider a repeat DEXA in 5 years or sooner, or if there is a new clinical indication. All treatment decisions require clinical judgment and consideration of individual patient factors, including patient preferences, comorbidities, previous drug use, risk factors not captured in the FRAX model (e.g., frailty, falls, vitamin D deficiency, increased bone turnover, interval significant decline in bone density ) and possible under- or over-estimation of fracture risk by FRAX. In addition, the NOF Guide recommends that FDA-approved medical therapies be considered in postmenopausal women and men age >= 50 years with a: * Hip or vertebral (clinical or morphometric) fracture * T-score of <=-2.5 at the spine or hip * Ten-year fracture probability by FRAX of >= 3% for hip fracture or >=20% for major osteoporotic fracture. People with diagnosed cases of osteoporosis or at high risk for fracture should have regular bone mineral density tests. For patients eligible for Medicare, routine testing is allowed once every 2 years. The testing frequency can be increased to one year for patients who have rapidly progressing disease, those who are receiving or discontinuing medical therapy to restore bone mass, or have additional risk factors. Approved by: Gray Patrick M.D. on 03/15/2024 at 16:28
== END ==
PROVIDERS: PCP Family Medicine; Referring Provider Family Medicine; Visit Provider Family Medicine
DX: Z78.0 Asymptomatic menopausal state (principal)
CPT/HCPCS: 77080

== ENCOUNTER → 2024-04-25 13:23 | Outpatient (CLI) | payer MEDICARE, OTHER, SELFPAY ==
[2024-04-25 19:24] LABS: Prothrombin Time 11.1 SECONDS (9.4-12.5)
[2024-04-25 19:26] LABS: Reticulocyte Count, Percent 0.7 % (1.1-2.6)
[2024-04-25 19:27] LABS: Add Manual Diff / Slide Review NO; Basophils Absolute Auto 0 /uL (0-100); Basophils Percent Auto 0.9 % (0-2); Eosinophils Absolute Auto 100 /uL (0-450); Eosinophils Percent Auto 3.5 % (2-4); Hematocrit 36.6 % (36-46); Hemoglobin 12.4 g/dL (12.0-16.0); Lymphocytes Absolute Auto 1200 /uL (1100-4500); Lymphocytes Percent Auto 33.9 % (25-40); Mean Corpuscular Hemoglobin 29.7 PG (26-34); Mean Corpuscular Volume 87.4 fL (80-100); Monocytes Absolute Auto 200 /uL (0-900); Monocytes Percent Auto 6.6 % (3-14); Neutrophils Absolute Auto 2000 /uL (1500-7000); Neutrophils Percent Auto 55.1 % (50-75); Platelet Count 197 X10^3/uL (150-400); Red Blood Cell Count 4.18 X10^6/uL (4.0-5.2); Red Cell Distribution Width 14.3 % (11.6-14.8); White Blood Cell Count 3.6 X10^3/uL (4.5-11.0)
[2024-04-25 19:31] LABS: HEMOLYSIS < 15 (0-50); Iron 114 ug/dL (37-170)
[2024-04-25 19:36] LABS: Cholesterol 197 mg/dL (140-199); HDL Cholesterol 64 mg/dL (40-60); LDL Cholesterol Calculated 104 mg/dL (<100); Triglycerides 145 mg/dL (35-150)
[2024-04-25 19:44] LABS: Percent Iron Saturation 33 % (15-50); Total Iron Binding Capacity 348 ug/dL (265-497); Transferrin 288 mg/dL (206-381)
[2024-04-25 20:26] LABS: Vitamin B12 529 pg/mL (239-931)
== END ==
PROVIDERS: PCP Family Medicine; Visit Provider Family Medicine
DX: E78.2 Mixed hyperlipidemia (principal); D64.9 Anemia, unspecified; Z87.01 Personal history of pneumonia (recurrent); R53.83 Other fatigue; R06.09 Other forms of dyspnea
CPT/HCPCS: 80061; 82607; 83540; 83550; 84443; 85025; 85045; 85610

== ENCOUNTER → 2024-08-01 13:01 | Outpatient (CLI) | payer MEDICARE, OTHER, SELFPAY ==
[2024-08-01 19:40] LABS: Add Manual Diff / Slide Review NO; Basophils Absolute Auto 0 /uL (0-100); Basophils Percent Auto 0.7 % (0-2); Eosinophils Absolute Auto 100 /uL (0-450); Eosinophils Percent Auto 1.9 % (2-4); Hematocrit 38.9 % (36-46); Hemoglobin 13.2 g/dL (12.0-16.0); Lymphocytes Absolute Auto 1200 /uL (1100-4500); Lymphocytes Percent Auto 28.5 % (25-40); Mean Corpuscular Hemoglobin 30.3 PG (26-34); Mean Corpuscular Volume 88.9 fL (80-100); Monocytes Absolute Auto 200 /uL (0-900); Monocytes Percent Auto 5.1 % (3-14); Neutrophils Absolute Auto 2700 /uL (1500-7000); Neutrophils Percent Auto 63.8 % (50-75); Platelet Count 201 X10^3/uL (150-400); Red Blood Cell Count 4.38 X10^6/uL (4.0-5.2); Red Cell Distribution Width 13.2 % (11.6-14.8); White Blood Cell Count 4.2 X10^3/uL (4.5-11.0)
[2024-08-01 19:45] LABS: Alanine Aminotransferase 16 IU/L (<35); Albumin Globulin Ratio 1.4 (1.0-2.8); Alkaline Phosphatase 73 U/L (38-126); Aspartate Aminotransferase 32 IU/L (14-36); BUN Creatinine Ratio 30.2 (6-22); Bilirubin Total 0.5 mg/dL (0.2-1.3); Blood Urea Nitrogen 19 mg/dL (7-17); Calcium 9.6 mg/dL (8.4-10.2); Carbon Dioxide 29 mmol/L (22-32); Chloride 103 mmol/L (98-107); Estimated Glomerular Filt Rate > 60 mL/min (>60); Globulin 2.9 g/dL (1.7-4.1); Glucose 102 mg/dL (80-110); HEMOLYSIS 26 (0-50); Potassium 4.7 mmol/L (3.4-5.1); Sodium 136 mmol/L (137-145); Total Protein 6.9 g/dL (6.3-8.2)
[2024-08-01 19:48] LABS: HEMOLYSIS < 15 (0-50); Iron 112 ug/dL (37-170)
[2024-08-01 19:58] LABS: Percent Iron Saturation 34 % (15-50); Total Iron Binding Capacity 334 ug/dL (265-497); Transferrin 268 mg/dL (206-381)
[2024-08-01 20:17] LABS: Ferritin 13 ng/mL (11-264)
== END ==
PROVIDERS: PCP Family Medicine; Visit Provider Family Medicine
DX: D64.9 Anemia, unspecified (principal); I10 Essential (primary) hypertension; E87.1 Hypo-osmolality and hyponatremia; R06.09 Other forms of dyspnea
CPT/HCPCS: 80053; 82728; 83540; 83550; 85025

== ENCOUNTER → 2024-10-04 12:13 | Outpatient (CLI) | payer MEDICARE, OTHER, SELFPAY ==
[2024-10-04 19:26] LABS: Reticulocyte Count, Percent 0.6 % (1.1-2.6)
[2024-10-04 19:28] LABS: Add Manual Diff / Slide Review NO; Basophils Absolute Auto 0 /uL (0-100); Basophils Percent Auto 0.9 % (0-2); Eosinophils Absolute Auto 100 /uL (0-450); Eosinophils Percent Auto 3.8 % (2-4); Hemoglobin 13.9 g/dL (12.0-16.0); Lymphocytes Absolute Auto 1200 /uL (1100-4500); Mean Corpuscular HGB Conc 33.1 % (30-36); Mean Corpuscular Hemoglobin 29.7 PG (26-34); Mean Corpuscular Volume 89.8 fL (80-100); Monocytes Absolute Auto 200 /uL (0-900); Monocytes Percent Auto 5.9 % (3-14); Neutrophils Absolute Auto 1900 /uL (1500-7000); Neutrophils Percent Auto 55.4 % (50-75); Platelet Count 203 X10^3/uL (150-400); Red Blood Cell Count 4.68 X10^6/uL (4.0-5.2); Red Cell Distribution Width 14.2 % (11.6-14.8); White Blood Cell Count 3.5 X10^3/uL (4.5-11.0)
[2024-10-04 20:10] LABS: Ferritin 24 ng/mL (11-264)
== END ==
PROVIDERS: PCP Family Medicine; Visit Provider Family Medicine
DX: R79.0 Abnormal level of blood mineral (principal); D64.9 Anemia, unspecified
CPT/HCPCS: 82728; 85025; 85045

== ENCOUNTER → 2025-04-24 13:25 | Outpatient (CLI) | payer MEDICARE, OTHER, SELFPAY ==
[2025-04-24 19:37] LABS: Alanine Aminotransferase 16 IU/L (<35); Albumin 4.2 g/dL (3.5-5.0); Albumin Globulin Ratio 1.7 (1.0-2.8); Alkaline Phosphatase 98 U/L (38-126); Blood Urea Nitrogen 20 mg/dL (7-17); Calcium 9.4 mg/dL (8.4-10.2); Carbon Dioxide 25 mmol/L (22-32); Chloride 107 mmol/L (98-107); Estimated Glomerular Filt Rate > 60 mL/min (>60); Globulin 2.5 g/dL (1.7-4.1); Glucose 93 mg/dL (70-99); HEMOLYSIS 70 (0-50); Sodium 138 mmol/L (137-145); Total Protein 6.7 g/dL (6.3-8.2)
[2025-04-24 19:38] LABS: Potassium 4.6 mmol/L (3.4-5.1)
== END ==
PROVIDERS: PCP Family Medicine; Visit Provider Family Medicine
DX: I10 Essential (primary) hypertension (principal)
CPT/HCPCS: 80053

== ENCOUNTER → 2025-06-26 16:16 | Outpatient (CLI) | payer MEDICARE, OTHER, SELFPAY | PROVIDERS: PCP Family Medicine; Visit Provider Family Medicine | DX: R39.89 Other symptoms and signs involving the genitourinary system (principal) | CPT/HCPCS: 87086 ==

== ENCOUNTER → 2025-09-01 08:12 | Outpatient (CLI) | payer MEDICARE, OTHER, SELFPAY ==
[2025-09-01 18:17] LABS: Hematocrit 40.9 % (36-46); Hemoglobin 13.9 g/dL (12.0-16.0); Mean Corpuscular HGB Conc 34.1 % (30-36); Mean Corpuscular Hemoglobin 29.8 PG (26-34); Mean Corpuscular Volume 87.4 fL (80-100); Platelet Count 203 X10^3/uL (150-400)
[2025-09-01 18:27] LABS: Alanine Aminotransferase 25 IU/L (<35); Albumin 4.2 g/dL (3.5-5.0); Albumin Globulin Ratio 1.6 (1.0-2.8); Alkaline Phosphatase 88 U/L (38-126); Blood Urea Nitrogen 19 mg/dL (7-17); Calcium 9.1 mg/dL (8.4-10.2); Carbon Dioxide 26 mmol/L (22-32); Chloride 106 mmol/L (98-107); Cholesterol 218 mg/dL (140-199); Estimated Glomerular Filt Rate > 60 mL/min (>60); Globulin 2.7 g/dL (1.7-4.1); Glucose 102 mg/dL (70-99); HDL Cholesterol 70 mg/dL (40-60); HEMOLYSIS < 15 (0-50); Potassium 4.4 mmol/L (3.4-5.1); Sodium 139 mmol/L (137-145); Total Protein 6.9 g/dL (6.3-8.2); Triglycerides 145 mg/dL (35-150)
[2025-09-01 18:57] LABS: Thyroid Stimulating Hormone 2.96 uIU/mL (0.47-4.68)
[2025-09-01 19:02] LABS: Ferritin 14 ng/mL (11-264)
== END ==
PROVIDERS: PCP Family Medicine; Visit Provider Family Medicine
DX: I10 Essential (primary) hypertension (principal); R79.0 Abnormal level of blood mineral; E87.1 Hypo-osmolality and hyponatremia; E78.5 Hyperlipidemia, unspecified
CPT/HCPCS: 80053; 80061; 82728; 84443; 85027